=== PATIENT | male | born 1985 | race Hispanic/Latino ===

== ENCOUNTER 2017-07-25 20:50 | Emergency (ER) | payer OTHER ==
[~2017-07-25] VITALS: Ht 177.8 cm; Wt 122.5 kg
--- NOTE | 2017-07-25 22:25 | RADIOLOGY REPORT ---
EXAMINATION: XR CHEST CLINICAL INFORMATION: Cough and wheeze COMPARISON: None TECHNIQUE: 2 views of the chest were obtained. FINDINGS: Low lung volumes. Moderate bronchial wall thickening. No pneumonia, effusion or pneumothorax. Heart and mediastinum within normal limits. Nonobstructive gas pattern. IMPRESSION: Bronchial wall thickening.
--- NOTE | 2017-07-26 00:58 | ED INFLUENZA/URI COMPLAINT ---
History of Present Illness General Chief Complaint: General Adult Stated Complaint: "MY LUNGS ARE KILLING ME" Source: patient, old records Exam Limitations: no limitations Vital Signs & Intake/Output Vital Signs & Intake/Output Vital Signs Date Time Temp Pulse Resp B/P B/P Pulse O2 O2 Flow FiO2 Mean Ox Delivery Rate 07/26 0140 98 Room Air 07/26 0108 98.8 74 18 135/88 99 07/26 0040 98 07/25 2053 97.6 98 20 149/88 95 Room Air ED Intake and Output 07/26 0000 07/25 1200 Intake Total Output Total Balance Patient 270 lb Weight Weight Reported by Patient Measurement Method Allergies Coded Allergies: No Known Allergies (07/25/17) Reconcile Medications Albuterol Sulfate (Proair Hfa) 90 MCG HFA.AER.AD 2 PUF INH Q4-6 PRN PRN bronchospasm Codeine Phosphate/Guaifenesi (Cheratussin AC Syrup) 10 MG-100 MG/5 ML LIQUID 5 -10 ML PO Q6P PRN cough Prednisone 20 MG TABLET 1 TAB PO BID bronchospasm Triage Note: PT TO TRIAGE STATING "MY LUNGS ARE KILLING ME." PT REPORTS WAS PUT ON ZPACK 2 DAYS AGO WITHOUT IMPROVEMENT. REPORTS PAIN WITH INSP/EXP AND PRODUCTIVE COUGH. DENIES FEVERS. WHEEZING NOTED IN ALL LUNG SNOW. 02 SAT 95% ON RA. PT SPEAKING IN CLEAR SENTENCES. Triage Nurses Notes Reviewed? yes Onset: Last week Duration: day(s):, constant, continues in ED Timing: recent history Severity: moderate, severe Prior Episodes/Possible Cause: illness exposure No Modifying Factors: none Associated Symptoms: cough, muscle aches, nasal congestion, nasal drainage, wheezing HPI: 5 days prior to admission patient complains of nonproductive cough muscle aches nasal congestion nasal drainage with wheezing. 2 days prior to admission he was prescribed Zithromax. He denies fever chills nausea vomiting diarrhea abdominal pain chest pain headache dysuria rash bleeding. Past History Travel History Traveled to [place] past 21 day No Medical History Any Pertinent Medical History? see below for history Neurological: NONE EENT: NONE Cardiovascular: PVC'S Respiratory: NONE Gastrointestinal: NONE Hepatic: NONE Renal: NONE Musculoskeletal: NONE Psychiatric: NONE Endocrine: NONE Blood Disorders: NONE Cancer(s): NONE HOTEL ATTENDANT/Reproductive: NONE Surgical History Surgical History: non-contributory Psychosocial History What is your primary language Gabonese Tobacco Use: Never used Family History Hx Contributory? No Review of Systems Review of Systems Constitutional: Reports: see HPI, malaise. EENTM: Reports: see HPI, nasal congestion, nasal pain. Respiratory: Reports: see HPI, cough, short of breath, wheezing. Denies: sputum production. Cardiovascular: Reports: no symptoms. GI: Reports: no symptoms. Genitourinary: Reports: no symptoms. Musculoskeletal: Reports: no symptoms. Skin: Reports: no symptoms. Neurological/Psychological: Reports: no symptoms. Hematologic/Endocrine: Reports: no symptoms. Immunologic/Allergic: Reports: no symptoms. All Other Systems: Reviewed and Negative Physical Exam Physical Exam General Appearance: well developed/nourished, alert, awake, anxious, mild distress, obese Head: atraumatic, normal appearance Eyes: Bilateral: normal appearance, PERRL, EOMI. Ears, Nose, Throat: moist mucous membrane, nasal congestion, nasal drainage, pharyngeal erythema Neck: normal inspection, supple, full range of motion, trachea midline, lymphadenopathy (R), lymphadenopathy (L) Respiratory: chest non-tender, no respiratory distress, quiet respiration, wheezing Cardiovascular: regular rate/rhythm, normal peripheral pulses, norml femoral pulses equa Peripheral Pulses: 4+ carotid (R), 4+ carotid (L) Gastrointestinal: normal bowel sounds, soft, non-tender, no organomegaly Back: normal inspection, normal range of motion, no vertebral tenderness Extremities: normal inspection, normal capillary refill, normal range of motion, no edema Neurologic/Psych: no motor/sensory deficits, awake, alert, oriented x 3, normal gait, normal mood/affect, incident response manager II-XII nml as tested Reflexes: 2+: bicep (R), bicep (L). Skin: intact, normal color, warm/dry Lymphatic: adenopathy Core Measures Sepsis Present: No Sepsis Focused Exam Completed? No Progress Differential Diagnosis: influenza, otitis, pneumonia, pharyngitis, sinusitis Plan of Care: Orders Procedure Date/time Status RAPID VIRAL INFLUENZA A 07/26 22 Complete Microbiology 07/26 004 NASOPHARYN: Influenza Virus A & B Rapid Smear - COMP Diagnostic Imaging: Viewed by Me: Radiology Read. Discussed w/RAD: Radiology Read. CXR Impression: Bronchial wall thickening. Initial ED EKG: none Departure Departure Time of Disposition: 154 Disposition: HOME OR SELF CARE Condition: Stable Clinical Impression Primary Impression: Bronchitis, acute, with bronchospasm Referrals: Maury Melgoza MD (PCP/Family) Departure Forms: Customer Survey General Discharge Information RELEASE- WORK Prescriptions: Current Visit Scripts Albuterol Sulfate (Proair Hfa) 2 PUF INH Q4-6 PRN PRN bronchospasm #1 INHAL Prednisone 1 TAB PO BID #10 TAB Codeine Phosphate/Guaifenesi (Cheratussin AC Syrup) 5-10 ML PO Q6P PRN cough #240 ML
[2017-07-26 01:08] VITALS: BP 135/88
[2017-07-26] MEDS ORDERED: CHERATUSSIN AC118 M1 PO (01:57)
[2017-07-26] MEDS ORDERED: PREDNISONE20 M1 PO (01:57)
[2017-07-26] MEDS ORDERED: PROAIR HFA8.5 GM INH (01:57)
== END 2017-07-26 02:05 ==
LOC: ERH 20:50
DX: J20.9 Acute bronchitis, unspecified (principal)
CPT/HCPCS: 1263; 1395; 71046; 87804; 87804-59

== ENCOUNTER 2017-08-27 17:42 | Emergency (ER) | payer OTHER ==
[~2017-08-27] VITALS: Ht 177.8 cm; Wt 122.5 kg
[~2017-08-27 17:42] MED LIST: CHERATUSSIN AC118 M1 PO; PREDNISONE20 M1 PO; PROAIR HFA8.5 GM INH
--- NOTE | 2017-08-27 18:42 | ED DYSPNEA/ASTHMA COMPLAINT ---
History of Present Illness General Chief Complaint: General Adult Stated Complaint: SOB,WHEEZING Source: patient, old records Exam Limitations: no limitations Vital Signs & Intake/Output Vital Signs & Intake/Output Vital Signs Date Time Temp Pulse Resp B/P B/P Pulse O2 O2 Flow FiO2 Mean Ox Delivery Rate 08/27 1923 97.8 96 20 134/88 96 Room Air 08/27 1810 97 08/27 1800 96 Room Air 08/27 1755 98.0 101 20 156/90 97 Room Air Allergies Coded Allergies: No Known Allergies (07/25/17) Reconcile Medications Albuterol Sulfate (Proair Hfa) 90 MCG HFA.AER.AD 2 PUF INH Q4-6 PRN PRN bronchospasm Beclomethasone Dipropionate (QVAR) 80 MCG AER.W.ADAP 2 PUF INH BID BRONCHITIS Codeine Phosphate/Guaifenesi (Cheratussin AC Syrup) 10 MG-100 MG/5 ML LIQUID 10 ML PO Q6H PRN COUGH Codeine Phosphate/Guaifenesi (Cheratussin AC Syrup) 10 MG-100 MG/5 ML LIQUID 5 -10 ML PO Q6P PRN cough Doxycycline Hyclate 100 MG TABLET 1 TAB PO BID BRONCHITIS Prednisone 10 MG TABLET 1 DOSE PO ONCE DAILY BRONCHITIS 5 TABS X 3 DAYS THEN 4 TABS X 3 DAYS 3 TABS X 3 DAYS 2 TABS X 3 DAYS 1 TAB X 3 DAYS Prednisone 20 MG TABLET 1 TAB PO BID bronchospasm Triage Note: PT TO ER C/C SOB/WHEEZING X 2 WEEKS, RECENT HX OF PNA/BRONCHITIS. FINISHED Z-PACK TODAY. USING PROAIR Triage Nurses Notes Reviewed? yes Onset: Gradual Duration: week(s): (3-4), changing over time, continues in ED Timing: recent history Severity: moderate, severe Activities at Onset: none Prior Episodes/Possible Cause: no prior episodes Associated Symptoms: cough, insomnia, wheezing HPI: 32-year-old male with no past medical history presents for evaluation of cough, congestion and wheezing. Patient states symptoms started about 3 or 4 weeks ago in a been persistent. Patient states that before symptoms started he was diagnosed with the flu. He was seen here at the end of June and diagnosed with acute bronchitis. He was given a course of prednisone. He follow-up with his primary care doctor and was then told he had pneumonia. He finished and course of antibiotics but did not really get better once he was subtotally treated with a Z-Maxx and another course of prednisone. Patient states that he does improve while on the prednisone as soon as it goes away symptoms come right back. He does not smoke no history of asthma. He is been off prednisone now for greater than a week and he just finished a Z-Maxx yesterday. He denies any chest pain or hemoptysis recent surgery recent trauma or lower extremity edema. No history of blood clots. No fever. No dizziness lightheadedness nausea vomiting or diarrhea. (Raymon Corcoran) Past History Travel History Traveled to [place] past 21 day No Medical History Any Pertinent Medical History? see below for history Neurological: NONE EENT: NONE Cardiovascular: PVC'S Respiratory: NONE Gastrointestinal: NONE Hepatic: NONE Renal: NONE Musculoskeletal: NONE Psychiatric: NONE Endocrine: NONE Blood Disorders: NONE Cancer(s): NONE MANAGER OF PRODUCTION/Reproductive: NONE Surgical History Surgical History: non-contributory Psychosocial History What is your primary language Bulgarian Tobacco Use: Never used Family History Hx Contributory? No (Raymon Corcoran) Review of Systems Review of Systems Constitutional: Reports: no symptoms. EENTM: Reports: nasal congestion. Respiratory: Reports: see HPI, cough, short of breath, wheezing. Cardiovascular: Reports: no symptoms. GI: Reports: no symptoms. Genitourinary: Reports: no symptoms. Musculoskeletal: Reports: no symptoms. Skin: Reports: no symptoms. Neurological/Psychological: Reports: no symptoms. Hematologic/Endocrine: Reports: no symptoms. Immunologic/Allergic: Reports: no symptoms. All Other Systems: Reviewed and Negative (Raymon Corcoran) Physical Exam Physical Exam General Appearance: well developed/nourished, no apparent distress, alert, awake Head: atraumatic, normal appearance Eyes: Bilateral: normal appearance, PERRL, EOMI. Ears, Nose, Throat: normal pharynx, normal ENT inspection, hearing grossly normal Neck: normal inspection, supple, full range of motion Respiratory: chest non-tender, no respiratory distress, rhonchi, wheezing Cardiovascular: regular rate/rhythm, normal peripheral pulses Peripheral Pulses: 2+ radial (R), 2+ radial (L) Gastrointestinal: soft, non-tender Extremities: normal inspection, normal range of motion, no edema Neurologic/Psych: no motor/sensory deficits, awake, alert, oriented x 3, normal gait, normal mood/affect Skin: intact, normal color, warm/dry Lymphatic: no anterior cervical catie Core Measures ACS in differential dx? No CVA/TIA Diagnosis No Sepsis Present: No Sepsis Focused Exam Completed? No (Raymon Corcoran) Progress Differential Diagnosis: asthma, AMI, bronchitis, CHF, COPD, pulmonary embolism, pneumonia, pneumothorax, unstable angina Plan of Care: Orders Procedure Date/time Status XRY-CHEST XRAY, TWO VIEWS 08/28 1755 Active Patient seen and evaluated. He has diffuse wheezing and rhonchi auscultated bilaterally. No signs of hypoxia or cyanosis. No chest pain no DVT/PE risk factors. He has had symptoms for over a month his been sheeted with antibiotics multiple times. He does report being diagnosed with pneumonia. A chest x-ray was obtained which is negative. Patient was medicated with prednisone and a DuoNeb. He is feeling better for DuoNeb. No signs of hypoxia. he will be treated with a longer taper of prednisone. Doxycycline. Continue pro-air also be covered with Qvar. Cheratussin for cough at nighttime. Patient will also be referred to pulmonology for further evaluation and treatment. Discussed return precautions in detail. Patient agrees with the plan. Initial ED EKG: none (Raymon Corcoran) Departure Departure Disposition: HOME OR SELF CARE Condition: Stable Clinical Impression Primary Impression: Bronchitis Referrals: Katie ARREAGA,Leon Melgoza MD,Maury (PCP/Family) Emory Rey MD Additional Instructions: Rest and drink plenty of fluids. Take antibiotics and steroids as directed for the full course. Use pro-air inhaler 2 puffs every 4-6 hours as needed for cough or shortness of breath. Qvar 2 puffs twice daily. Cheratussin as needed for cough this may cause drowsiness. Complete blood work as soon as possible. Make a follow-up with provided professional bass fisherman Dr. Wilson or Dr. Rey. Monitor your symptoms return with any concerns. Departure Forms: Customer Survey General Discharge Information Prescriptions: Current Visit Scripts Doxycycline Hyclate 1 TAB PO BID #20 TAB Prednisone 1 DOSE PO ONCE DAILY #1 DP 5 TABS X 3 DAYS THEN 4 TABS X 3 DAYS 3 TABS X 3 DAYS 2 TABS X 3 DAYS 1 TAB X 3 DAYS Codeine Phosphate/Guaifenesi (Cheratussin AC Syrup) 10 ML PO Q6H PRN COUGH #240 ML Beclomethasone Dipropionate (QVAR) 2 PUF INH BID #8.7 GM (Raymon Corcoran) PA/OPERATING ROOM AIDE Co-Sign Statement Statement: ED Attending supervision documentation- I saw and evaluated the patient. I have also reviewed all the pertinent lab results and diagnostic results. I agree with the findings and the plan of care as documented in the PA's/OPERATING ROOM AIDE's documentation. x I have reviewed the ED Record and agree with the PA's/OPERATING ROOM AIDE's documentation. [] Additions or exceptions (if any) to the PAs/OPERATING ROOM AIDE's note and plan are summarized below: [] (Gissel ARREAGA,Leroy) Critical Care Note Critical Care Note Critical Care Time: non-applicable (Raymon Corcoran)
--- NOTE | 2017-08-27 18:50 | RADIOLOGY REPORT ---
EXAMINATION: XR CHEST CLINICAL INFORMATION: Cough and fever COMPARISON: 07/25/2017 TECHNIQUE: 2 views of the chest were obtained. FINDINGS: The lungs are well-inflated and clear. Trachea is midline in position. No evidence of interstitial disease, focal consolidation, mass, pneumothorax or pleural effusion. The cardiomediastinal silhouette and pulmonary eleno have normal size and contour. No hilar lymphadenopathy. Bones are unremarkable. The examined upper abdomen is normal. IMPRESSION: No acute cardiopulmonary findings.
[2017-08-27] MEDS ORDERED: QVAR8.7 G1 INH (19:14)
[2017-08-27] MEDS ORDERED: CHERATUSSIN AC118 M1 PO (19:14)
[2017-08-27] MEDS ORDERED: PREDNISONE10 M2 PO (19:14)
[2017-08-27] MEDS ORDERED: DOXYCYCLINE HY100 M4 PO (19:14)
[2017-08-27 19:23] VITALS: BP 134/88
== END 2017-08-27 19:26 ==
LOC: ERH 17:42
DX: J40 Bronchitis, not specified as acute or chronic (principal)
CPT/HCPCS: 1263; 1395; 36415; 71046